=== PATIENT | female | born 1950 | race African-American/Black ===

== ENCOUNTER 2020-04-12 08:00 | Inpatient (IN) | payer OTHER ==
[2020-04-06 11:42] VITALS: BMI 43.0
[~2020-04-12 08:00] MED LIST: VANCOMYCIN 1,000 MG VIAL (RESTRICTED TO ID ONLY) IVPB ONE
[2020-04-12] MEDS ORDERED: CELECOXIB 200 MG CAPSULE ONE (09:04)
[2020-04-12] MEDS ORDERED: CELECOXIB 200 MG CAPSULE PO ONE ×2 (09:15→09:18)
[2020-04-12] MEDS ORDERED: TRANEXAMIC ACID 1000 MG/10 ML VIAL IVPUSH ONE (09:18)
[2020-04-12] MEDS ORDERED: SODIUM CHLORIDE 0.9% P/F 10 ML VIAL IJ ONE (10:02)
[2020-04-12] MEDS ORDERED: BUPIVACAINE LIPOSOME/PF (EXPAREL) 266 MG/20 ML VIAL ONE (10:02)
[2020-04-12] MEDS ORDERED: MIDAZOLAM HCL 2 MG/2 ML SINGLE DOSE VIAL ONE ×3 (10:02→12:26)
[2020-04-12] MEDS ORDERED: CEFAZOLIN 3 GM in DEXTROSE 5%-WATER - 100 ML IVPB ONE (10:30)
[2020-04-12] MEDS ORDERED: VANCOMYCIN 1,000 MG VIAL (RESTRICTED TO ID ONLY) ONE (10:45)
[2020-04-12] MEDS ORDERED: ceFAZolin SODIUM 1 GM VIAL ONE ×3 (10:45→20:09)
[2020-04-12] MEDS ORDERED: TRANEXAMIC ACID 1000 MG/10 ML VIAL ONE (11:05)
[2020-04-12] MEDS ORDERED: DEXAMETHASONE SOD PHOSPHATE 4 MG/1 ML VIAL ONE (11:05)
[2020-04-12] MEDS ORDERED: LIDOCAINE HCL/PF 2% SDV 5ML VIAL ONE (11:05)
[2020-04-12] MEDS ORDERED: PROPOFOL 20 ML ONE (11:05)
[2020-04-12] MEDS ORDERED: ONDANSETRON 4 MG/2 ML VIAL ONE (11:05)
[2020-04-12] MEDS ORDERED: MAGNESIUM HYDROX 2400MG/30ML ORAL SUSPENSION 30 ML CUP PO PRN (12:16)
[2020-04-12] MEDS ORDERED: ONDANSETRON 4 MG/2 ML VIAL IVPUSH PRN (12:16)
[2020-04-12] MEDS ORDERED: MAG HYDROX/AL HYDROX/SIMETH 30 ML UNIT-DOSE CUP PO PRN (12:16)
[2020-04-12] MEDS ORDERED: LACTATED RINGERS SOLUTION 1,000 ML IV SCH (12:30)
[2020-04-12] MEDS ORDERED: VANCOMYCIN 1,000 MG VIAL (RESTRICTED TO ID ONLY) IVPB ONE (13:45)
[2020-04-12] MEDS ORDERED: GLYCOPYRROLATE 0.2 MG/1 ML VIAL ONE (14:31)
[2020-04-12] MEDS ORDERED: oxyCODONE HCL 5 MG TABLET PO PRN (15:37)
[2020-04-12] MEDS: ACETAMINOPHEN 325 MG TABLET (FP) PO SCH ×2 (15:41→22:18)
[2020-04-12] MEDS: oxyCODONE HCL 5 MG TABLET PO PRN ×2 (17:29→20:33)
[2020-04-12] MEDS ORDERED: DEXTROSE 5%-WATER 100 ML IVPB ONE (20:10)
[2020-04-12] MEDS: CEFAZOLIN 3 GM in DEXTROSE 5%-WATER 100 ML IVPB SCH (20:33)
[2020-04-12 20:52] LABS: HIV INTERPRETATION PRESUMPTIVE POSITIVE (NEGATIVE)
[2020-04-12] MEDS: oxyCODONE HCL 10 MG SUSTAINED ACTING TABLET PO SCH (22:18)
[2020-04-12] MEDS: SENNOSIDES/DOCUSATE COMBO (SENNA PLUS) TABLET (UD) PO SCH (22:19)
[2020-04-13] MEDS: ACETAMINOPHEN 325 MG TABLET (FP) PO SCH ×4 (03:44→21:04)
[2020-04-13] MEDS: CEFAZOLIN 3 GM in DEXTROSE 5%-WATER 100 ML IVPB SCH (04:44)
[2020-04-13] MEDS ORDERED: ceFAZolin SODIUM 1 GM VIAL ONE (06:25)
[2020-04-13] MEDS ORDERED: DEXTROSE 5%-WATER 100 ML IVPB ONE (06:25)
[2020-04-13] MEDS: oxyCODONE HCL 5 MG TABLET PO PRN (06:45)
[2020-04-13] MEDS: ASPIRIN 325 MG TABLET PO SCH (08:10)
[2020-04-13 08:38] LABS: HEMATOCRIT 35.5 % (32.4-45.2); HEMOGLOBIN 12.1 GM/dl (10.7-15.3); MCH 32.7 pg (25.7-33.7); MCHC 34.2 g/dl (32.0-36.0); MEAN CELL VOLUME 95.8 fl (80-96); MEAN PLT VOLUME 8.8 fl (7.5-11.1); PLATELET COUNT 192 K/MM3 (134-434); RBC 3.71 M/mm3 (3.60-5.2); RDW 13.9 % (11.6-15.6)
[2020-04-13] MEDS ORDERED: HYDROCHLOROTHIAZIDE 12.5 MG CAPSULE (FP) PO SCH (10:00)
[2020-04-13] MEDS ORDERED: MULTIVITAMINS (DAILY MVI) TABLET (FP) PO SCH (10:00)
[2020-04-13] MEDS ORDERED: PATIENT'S OWN MEDICATION (NON-FORMULARY) (Darunavir/Cob/Emtri/Tenof Alaf [Symtuza 800-150- PO SCH (10:00)
[2020-04-13] MEDS ORDERED: PANTOPRAZOLE 40 MG TABLET PO SCH (10:00)
[2020-04-13] MEDS: SENNOSIDES/DOCUSATE COMBO (SENNA PLUS) TABLET (UD) PO SCH ×2 (10:21→21:04)
[2020-04-13] MEDS: oxyCODONE HCL 10 MG SUSTAINED ACTING TABLET PO SCH ×2 (10:40→21:04)
[2020-04-13] MEDS ORDERED: ATORVASTATIN CA 10 MG TABLET (FP) PO SCH (22:00)
[2020-04-14] MEDS: ACETAMINOPHEN 325 MG TABLET (FP) PO SCH (04:57)
[2020-04-14] MEDS: oxyCODONE HCL 5 MG TABLET PO PRN (04:57)
[2020-04-14 05:41] VITALS: BP 105/44; PULSE 105; TEMP 99.5
[2020-04-14 08:12] LABS: HEMOGLOBIN 10.1 GM/dl (10.7-15.3); MCH 32.9 pg (25.7-33.7); MCHC 34.7 g/dl (32.0-36.0); MEAN CELL VOLUME 94.9 fl (80-96); MEAN PLT VOLUME 9.1 fl (7.5-11.1); PLATELET COUNT 155 K/MM3 (134-434); RBC 3.06 M/mm3 (3.60-5.2); RDW 14.1 % (11.6-15.6)
[2020-04-14] MEDS: ASPIRIN 325 MG TABLET PO SCH (08:55)
== END 2020-04-14 09:00 | disposition home health service (06) | DRG 470 ==
LOC: EDBD → MERGE 08:00 → FM/S 08:09
PROVIDERS: ADMIT Orthopaedic Surgery; ATTEND Orthopaedic Surgery
PROC: 8E0Y0CZ Robotic Assisted Procedure of Lower Extremity, Open Approach (ICD-10-PCS; 2020-04-12)
PROC: 0SRD0J9 Replacement of Left Knee Joint with Synthetic Substitute, Cemented, Open Approach (ICD-10-PCS; principal; 2020-04-12 12:26)
DX: M17.12 Unilateral primary osteoarthritis, left knee (principal); I10 Essential (primary) hypertension; E78.5 Hyperlipidemia, unspecified
CPT/HCPCS: 36415; 73560-TC-LT-FY; 84460; 85027; 86803; 87340; 87389; 88305-TC; 88311-TC; 94760; 97010-GP; 97116-GP; 97163-GP